=== PATIENT | female | born 1975 | race Caucasian/White ===

== ENCOUNTER 2016-03-02 13:56 | Emergency (ER) | payer SELFPAY ==
[2016-03-02 14:03] VITALS: TEMP 97.8; BMI 38.5
[2016-03-02] MEDS ORDERED: HYDROmorphone 1 MG INJECTION IV ONE ×4 (14:12→19:19)
[2016-03-02] MEDS ORDERED: SODIUM CHLORIDE 0.9% 10 ML FLUSH FLUSH PRN (14:13)
--- NOTE | 2016-03-02 14:21 | EDPRACDOC ---
- General Information Information Source: Patient - History of Present Illness Onset: 1 week HPI: Pt c/o R wrist and hand pain progressive over 1 week. Pt states pain became severe with white hand, numbness in fingers and ecchymosis. Pt states had previous surgery on wrist but denies new injury. Went to urgent care and they couldn't find pulse in R wrist so sent for eval. Location: Reports: Right Dominant Hand: Right Mechanism: Reports: Spontaneous Circumstances: Reports: Unknown Associated Signs & Symptoms: Reports: Hand Pain, Wrist Pain <Suzette Mauricio - Last Filed: 03/02/16 18:29> <Jones Castillo - Last Filed: 03/02/16 19:44> - General Information Chief Complaint: Hand Pain Stated Complaint: RT ARM PAIN NO PULSE HAS HARDWARE RT WRIST Time Seen by Provider: 03/02/16 14:12 Home Medications: Home Medications Amphet Asp/Amphet/D-Amphet [Adderall 20 mg Tablet] 20 mg PO BID 09/18/13 Bisoprolol Fumarate [Zebeta] 5 mg PO DAILY 09/18/13 Oxycodone Immediate Release [Oxy-Ir] 10 mg PO Q6H PRN 09/18/13 Ranitidine HCl [Zantac] 150 mg PO BID 09/18/13 Losartan/Hydrochlorothiazide [Hyzaar 100-25 Tablet] 1 tab PO DAILY 12/02/13 Amlodipine Besylate [Norvasc] 5 mg PO DAILY 03/25/15 ClonazePAM [Klonopin] 0.5 mg PO QHS 03/02/16 Cyanocobalamin (Vitamin B-12) [Vitamin B-12 (cyanocobalamin)] 1,000 mcg SL DAILY 03/02/16 Ferrous Sulfate [Iron] 325 mg PO DAILY 03/02/16 Multivit-Min/Folic Acid/Biotin [Hair, Skin & Nails Caplet] 1 tab PO DAILY Oxycodone HCl [Roxicodone] 5 - 10 mg PO Q4 PRN #15 tablet 03/02/16 Prednisone [Sterapred DS 10 mg/12 day pack] 48 tab PO DIR #1 pack 03/02/16 Allergies/Adverse Reactions: Allergies Allergy/AdvReac Type Severity Reaction Status Date / Time tramadol Allergy Hives* Verified 03/02/16 13:59 ED Past Medical History - History Reviewed Yes Nurses notes reviewed and agree except as marked - Patient Medical History Cardiac History: Reports: Hypertension, Syncope (ONCE A FEW MONTHS AGO.) GI/ History: Reports: Gastroesophageal Reflux Surgical History: Reports: Cholecystectomy - Social Medical History Smoking Status: Never smoker ETOH: None Substance Abuse: None <HangSuzette E - Last Filed: 03/02/16 18:29> EDM Review of Systems - Review of Systems Constitutional: No Symptoms Reported. negative: Fever, Chills, Weakness, Fatigue, Loss of Appetite Neurological: Numbness, Tingling Musculoskeletal: Hand, Wrist Integumentary: Bruising. negative: No Symptoms Reported, Itching, Rash, Wound Allergic/Immunologic: No Symptoms Reported. negative: Hives, Itching Hematologic: No Symptoms Reported. negative: Lymphadenopathy, Easy Bruising, Easy Bleeding Psychiatric: No Symptoms Reported. negative: Anxiety, Depression, Hallucinations, Insomnia, Suicidal <Suzette Mauricio - Last Filed: 03/02/16 18:29> - Physical Exam Constitutional: Alert Oriented to: Time, Person, Place Last recorded Vital Signs: Last Vital Signs Temp 97.8 F 03/02/16 13:59 Pulse 84 03/02/16 13:59 Resp 18 03/02/16 13:59 BP 156/83 03/02/16 13:59 Pulse Ox 98 03/02/16 13:59 Oxygen Pulse Oxygen Saturation 98 O2 Device Oxygen Flow Rate Fraction of Inspired Oxygen ( FIO2) - HEENT Head: Normal ( normocephalic) - Respiratory/Cardiovascular Respiratory: Normal - CTA (BBS clear to auscultation without adventitious sounds ) Cardiovascular: Normal (RRR without murmur, gallop or rub) - Musculoskeletal Extremities: Radial Pulse (weak on R found with doplar, ulna pulse confirmed and strong.) - Integumentary Skin: Other (R dorsal hand ecchymosis, finger and hand pink and warm to touch) Lymphatics: Normal (no adenopathy) - Neurologic Memory Impaired: Normal Motor Function: Normal (Normal tone, Pulses 2+ No cyanosis or edema, FROM) Mood Description: Normal Perception: Normal <Suzette Mauricio - Last Filed: 03/02/16 18:29> - Physical Exam Last recorded Vital Signs: Last Vital Signs Temp 97.8 F 03/02/16 13:59 Pulse 80 03/02/16 16:04 Resp 20 03/02/16 16:04 BP 117/75 03/02/16 16:04 Pulse Ox 98 03/02/16 16:04 Oxygen Pulse Oxygen Saturation 98 O2 Device Room Air Oxygen Flow Rate Fraction of Inspired Oxygen ( FIO2) <Jones Castillo - Last Filed: 03/02/16 19:44> ED Hand Problem Physical Exam - Musculoskeletal Hand: Swelling, Moderate Tenderness Wrist: Moderate Tenderness Digit: Normal Digit Strength: Normal Nail: Normal Nailbed: Normal Soft Tissue: Swelling Distal Function/Circulation: Normal - Integumentary Skin: Ecchymosis, Swelling Lymphatics: Normal <Suzette Mauricio - Last Filed: 03/02/16 18:29> - Differential Diagnosis Contusion, Sprain, Other (arterial clot/stenosis) - Results 03/02/16 15:10 03/02/16 15:10 - Diagnostic Imaging Other Image interpreted by: Radiologist US: arm:IMPRESSION: 1. No evidence of upper extremity arterial occlusive disease at rest. - Additional Information Discussed pt with Dr Castillo and wants CTA and CT arm after evaluation. Final disposition given to Dr Castillo at 1830 <Suzette Mauricio - Last Filed: 03/02/16 18:29> - Re-evaluation Re-evaluation 1 Re-evaluation Time: 19:21 PT STILL HAVING PAIN. MOSTLY DISTAL RIGHT RADIUS. D/W DR HOLDEN. HE STATES PT MUST F/U WITH HER SURGEON IN [place]. LONG DISCUSSION WITH PT ON CAUSE OF PAIN, REASONS TO RETURN. PT WORKING ON SEEING ORTHO AT [facility]-OUTPATIENT. - Results 03/02/16 15:10 03/02/16 15:10 WBC 8.7 xk/uL (3.8-10.8) 03/02/16 15:10 RBC 4.15 xM/uL (4.20-5.40) L 03/02/16 15:10 Hgb 13.2 g/dL (12.0-16.0) 03/02/16 15:10 Hct 37.9 % (36-47) 03/02/16 15:10 MCV 91 fL (81-99) 03/02/16 15:10 MCH 31.7 pg (27-32) 03/02/16 15:10 MCHC 34.8 g/dl (33-36) 03/02/16 15:10 RDW 13.2 % (11.5-14.5) 03/02/16 15:10 Plt Count 365 xk/uL (130-400) 03/02/16 15:10 MPV 7.6 fL (7.4-10.4) 03/02/16 15:10 Neut % (Auto) 59.4 % (45-76) 03/02/16 15:10 Lymph % (Auto) 29.4 % (17-44) 03/02/16 15:10 [place] % (Auto) 7.9 % (3-10) 03/02/16 15:10 Eos % (Auto) 1.9 % (0-5) 03/02/16 15:10 Baso % (Auto) 1.4 % (0-2) 03/02/16 15:10 Absolute Neuts (auto) 5.13 xk/uL (1.7-8.2) 03/02/16 15:10 Absolute Lymphs (auto) 2.52 xk/uL (0.65-4.75) 03/02/16 15:10 PT 9.5 SEC (9.2-11.2) 03/02/16 15:10 INR 0.9 03/02/16 15:10 APTT 21.1 SEC (22-35) L 03/02/16 15:10 Lab Results 03/02/16 03/02/16 15:10 15:10 WBC 8.7 RBC 4.15 L Hgb 13.2 Hct 37.9 MCV 91 MCH 31.7 MCHC 34.8 RDW 13.2 Plt Count 365 MPV 7.6 Neut % (Auto) 59.4 Lymph % (Auto) 29.4 [place] % (Auto) 7.9 Eos % (Auto) 1.9 Baso % (Auto) 1.4 Absolute Neuts (auto) 5.13 Absolute Lymphs (auto) 2.52 PT 9.5 INR 0.9 APTT 21.1 L - EKG EKG #1 EKG Time: 16:10 -: Yes EKG interpreted by me Rate: bpm: 73 [place]: Normal Rhythm: NSR ST: Nonsp Comments: ABNORMAL EKG <Jones Castillo - Last Filed: 03/02/16 19:44> - Departure Education/Counseling Given To: Patient Education/Counseling Given Regarding: Diagnosis, Treatment <MauricioSuzette E - Last Filed: 03/02/16 18:29> - Departure Yes I personally saw and evaluated the patient. Disposition: Home <Jones Castillo - Last Filed: 03/02/16 19:44> - Departure Condition: Stable Final Diagnosis: Hand pain, Right wrist pain Instructions: RICE: Routine Care for Injuries Referrals: Shabbir Hannon MD [Primary Care Provider] - One Week Prescriptions: New Oxycodone HCl [Roxicodone] 5 - 10 mg PO Q4 PRN #15 tablet PRN Reason: Pain Prednisone [Sterapred DS 10 mg/12 day pack] 48 tab PO DIR #1 pack No Action Ranitidine HCl [Zantac] 150 mg PO BID Amphet Asp/Amphet/D-Amphet [Adderall 20 mg Tablet] 20 mg PO BID Bisoprolol Fumarate [Zebeta] 5 mg PO DAILY Oxycodone Immediate Release [Oxy-Ir] 10 mg PO Q6H PRN PRN Reason: Pain Losartan/Hydrochlorothiazide [Hyzaar 100-25 Tablet] 1 tab PO DAILY Amlodipine Besylate [Norvasc] 5 mg PO DAILY Ferrous Sulfate [Iron] 325 mg PO DAILY Cyanocobalamin (Vitamin B-12) [Vitamin B-12 (cyanocobalamin)] 1,000 mcg SL DAILY Multivit-Min/Folic Acid/Biotin [Hair, Skin & Nails Caplet] 1 tab PO DAILY ClonazePAM [Klonopin] 0.5 mg PO QHS Additional Instructions: FOLLOW UP WITH YOUR ORTHO SOON POSSIBLE. RETURN FOR CHANGE IN OR WORSE SYMPTOMS.
[2016-03-02] MEDS ORDERED: Pharmacy Review for Metformin - IV Contrast Given SCH ×3 (15:00→18:00)
[2016-03-02 15:21] LABS: AUTOMATED BASOPHIL 1.4 % (0-2); AUTOMATED EOSINOPHIL 1.9 % (0-5); AUTOMATED LYMPH 29.4 % (17-44); AUTOMATED MONOCYTE 7.9 % (3-10); AUTOMATED NEUTROPHIL 59.4 % (45-76); MPV 7.6 fL (7.4-10.4)
[2016-03-02 15:37] LABS: PARTIAL THROMB. TIME 21.1 SEC (22-35); PT-INR 0.9
--- NOTE | 2016-03-02 16:17 | DIRPT ---
CLINICAL DATA: Right upper extremity pain. Hypertension. Previous tobacco abuse. Remote right radial and ulnar fractures, post internal fixation. EXAM: NONINVASIVE PHYSIOLOGIC VASCULAR STUDY OF BILATERAL UPPER EXTREMITIES TECHNIQUE: Evaluation of both upper extremities was performed at rest, including calculation of wrist-brachial indices. COMPARISON: None. FINDINGS: Right Wrist Brachial Index: 1.0 Left Wrist Brachial Index: 1.01 IMPRESSION: 1. No evidence of upper extremity arterial occlusive disease at rest. Electronically Signed By: Dakota Walsh M.D. On: 03/02/2016 16:15
[2016-03-02] MEDS ORDERED: ONDANSETRON HCL 4 MG/2 ML VIAL ONE (16:43)
[2016-03-02] MEDS ORDERED: ONDANSETRON HCL 4 MG/2 ML VIAL IV ONE (16:51)
[2016-03-02 17:03] LABS: BLOOD UREA NITROGEN 17 MG/DL (7-17); CALCIUM 10.2 MG/DL (8.4-10.2); CALCULATED OSMOLALITY 275 MOs/Kg (270-290); CHLORIDE 100 mEq/L (98-107); GLUCOSE 173 MG/DL (70-99); SODIUM LEVEL 140 mEq/L (137-146)
--- NOTE | 2016-03-02 18:40 | DIRPT ---
CLINICAL DATA: Shortness of breath EXAM: CT ANGIOGRAPHY CHEST WITH CONTRAST TECHNIQUE: Multidetector CT imaging of the chest was performed using the standard protocol during bolus administration of intravenous contrast. Multiplanar CT image reconstructions and MIPs were obtained to evaluate the vascular anatomy. CONTRAST: 130 cc Isovue 370 COMPARISON: None. FINDINGS: Some of the most peripheral segmental and subsegmental pulmonary arteries are difficult to definitively characterize due to artifact related to mild patient breathing motion and body habitus. There is no convincing pulmonary embolism seen within the main, lobar or central segmental pulmonary arteries bilaterally. Thoracic aorta is normal in caliber. No aortic aneurysm or dissection. Heart size is normal. No pericardial effusion. Esophagus is unremarkable. No mass or enlarged lymph nodes seen within the mediastinum or perihilar regions. Trachea and central bronchi are unremarkable. Lungs are clear. No pneumonia. No pleural effusion. No pneumothorax. Limited images of the upper abdomen show significant fatty infiltration of the liver, incompletely imaged. Patient is status post cholecystectomy, incompletely imaged. No osseous abnormality appreciated. Superficial soft tissues are unremarkable. Review of the MIP images confirms the above findings. IMPRESSION: 1. No pulmonary embolism seen, with mild study limitations detailed above. 2. No acute findings. No aortic aneurysm or dissection. Heart size is normal. Lungs are clear. 3. Fairly marked fatty infiltration of the liver, incompletely imaged. Electronically Signed By: iTm Telles M.D. On: 03/02/2016 18:38
--- NOTE | 2016-03-02 18:53 | DIRPT ---
CLINICAL DATA: Right hand pain and swelling. Previous right wrist fractures post internal fixation. EXAM: CT OF THE UPPER RIGHT EXTREMITY WITH CONTRAST TECHNIQUE: Multidetector CT imaging of the right wrist was performed according to the standard protocol following intravenous contrast administration. COMPARISON: Right wrist radiographs 07/08/2011 CONTRAST: 130 cc Isovue 370 FINDINGS: Postoperative changes with plate and screw fixation of an old healed fracture of the distal right radius. A defect in the cortical surface at the radiocarpal joint remains. There is an old ununited ossicle at the ulnar styloid process. There is slight prominence of the scapholunate space. This is probably within normal limits but can't exclude laxity of the scapholunate ligament. No evidence of acute fracture or dislocation. Normal contrast enhancement is demonstrated in the visualized radial and ulnar arteries with flow to the palm are in digital arteries. Normal venous contrast material is demonstrated. No focal mass lesion identified. No significant soft tissue infiltration or enhancement. No loculated fluid collections to suggest abscess. No bone or cortical erosion to suggest osteomyelitis. Note that MRI would be more sensitive for evaluation of the soft tissues of the hand and wrist clinically indicated. IMPRESSION: Postoperative changes of old fracture deformity at the distal right radius. 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 Slight widening of the scapholunate space is nonspecific but probably within normal limits. No evidence of abnormal contrast enhancement for abscess. Electronically Signed By: Home Flynn M.D. On: 03/02/2016 18:51
[2016-03-02] MEDS ORDERED: NS 1,000 ML IV ONE (19:02)
[2016-03-02] MEDS ORDERED: PROMETHAZINE 25 MG/ML VIAL IV ONE (19:19)
[2016-03-02 20:55] VITALS: BP 121/77; PULSE 72
== END 2016-03-02 20:55 | disposition home or self-care (01) ==
LOC: ED 13:56
DX: M25.531 Pain in right wrist (principal); M79.641 Pain in right hand
CPT/HCPCS: 36415; 71275; 73201; 80053; 83605; 84484; 85025; 85610; 85651; 85730; 86140; 93005; 93931; 96361; 96374; 96375; 96376; 99285; A9698; J1170; J2405; J2550